=== PATIENT | male | born 1960 | race African-American/Black ===

== ENCOUNTER 2019-03-28 15:13 | Inpatient (IN) | payer MEDICAID ==
[~2019-03-28] VITALS: Ht 185.4 cm; Wt 188.2 kg
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
[2019-03-28 15:30] VITALS: BP 141/89
[2019-03-28] MEDS ORDERED: Aspirin Baby 81mg ORAL ONE (15:30)
--- NOTE | 2019-03-28 15:30 | NUR ---
ED Nurse Note: pt wheeled into ED accompanied by spouse c/o CP. pt reports onset was last PM 03/27 after he drank juice and a pepsi that pt took 1 325 mg tablet of ASA for without relief. pt states it felt like pressure that he rated an 8/10 that radiates to the back of his head. he felt his heart was beating fast and couldn't stand or walk. pt states that the px has not improved from last PM and he took another ASA tablet today without relief. He was unable to education instructor the shower without feeling dizzy and becoming diaphoretic. He reports feeling like his "equilibrium is off."
[2019-03-28] MEDS ORDERED: AFEDITAB CR30 MG ORAL (15:33)
[2019-03-28] MEDS ORDERED: ULORIC80 MG ORAL (15:33)
[2019-03-28] MEDS ORDERED: BENAZEPRIL HCL20 MG ORAL (15:33)
[2019-03-28] MEDS ORDERED: ATORVASTATIN CA40 MG ORAL (15:33)
[2019-03-28] MEDS ORDERED: JANUVIA25 MG ORAL (15:33)
[2019-03-28] MEDS ORDERED: METFORMIN HCL850 M1 ORAL (15:33)
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
[2019-03-28 16:14] LABS: BASOPHILS % (AUTO) 1.5 % (0.0-2.0); EOSINOPHILS % (AUTO) 0.9 % (0.0-3.0); HEMATOCRIT 45.8 % (42.0-52.0); HEMOGLOBIN 15.4 G/DL (14.2-18.0); LYMPHOCYTES % (AUTO) 35.4 % (20.0-45.0); MEAN CORPUSCULAR VOLUME 87 FL (80-99); MONOCYTES % (AUTO) 7.7 % (1.0-10.0); NEUTROPHILS % (AUTO) 54.4 % (45.0-75.0); PLATELET COUNT 468 K/UL (150-450); RED BLOOD COUNT 5.24 M/UL (4.70-6.10); RED CELL DISTRIBUTION WIDTH 12.6 % (11.6-14.8); WHITE BLOOD COUNT 15.3 K/UL (4.8-10.8)
--- NOTE | 2019-03-28 16:15 | NUR ---
ED Nurse Note: pt states his CP is at a 4 and he feels dizzy when he sits up. current BP is 134/66
[2019-03-28 16:48] LABS: ANION GAP 14 mmol/L (5-15); BLOOD UREA NITROGEN 12 mg/dL (7-18); CALCIUM 9.2 MG/DL (8.5-10.1); CARBON DIOXIDE 24 MMOL/L (21-32); CHLORIDE 107 MMOL/L (98-107); CREATININE 1.2 MG/DL (0.55-1.30); POTASSIUM 3.8 MMOL/L (3.5-5.1); SODIUM 144 MMOL/L (136-145)
[2019-03-28 17:20] VITALS: BP 140/49
--- NOTE | 2019-03-28 17:21 | NUR ---
ED Nurse Note: pt states that he felt dizzy when standing so I asked him to stay in bed in semi-carney position. BP is 140/49.
[2019-03-28 17:22] LABS: ALANINE AMINOTRANSFERASE 32 U/L (12-78); ALBUMIN 3.6 G/DL (3.4-5.0); ALBUMIN/GLOBULIN RATIO 0.8 (1.0-2.7); ALKALINE PHOSPHATASE 66 U/L (46-116); ASPARTATE AMINO TRANSFERASE 27 U/L (15-37); BILIRUBIN,TOTAL 0.5 MG/DL (0.2-1.0); CKMB 1.5 NG/ML (0.0-3.6); CREATINE KINASE 216 U/L (26-308)
--- NOTE | 2019-03-28 19:14 | NUR ---
HAND-OFF: Report given to Joanna LANE. pt remains in stable condition.
--- NOTE | 2019-03-28 19:15 | NUR ---
ED Nurse Note: received report and assumed care, pending admit, pt resting at this time, vss, sinus rhythm on monitor technician, safety precautions in place, pt advised to notify staff if needed assist.
[2019-03-28 19:50] VITALS: BP 141/53
--- NOTE | 2019-03-28 19:55 | NUR ---
ED Nurse Note: report given to DOMINGO Perkins.
--- NOTE | 2019-03-28 20:00 | NUR ---
ED Nurse Note: pt transferred to tele on desk monitor, sinus rhythm, belongings sent w/ pt w/ list, pt vss, resp even and unlabored on RA, medications sent home with girlfriend andreina. care endorsed to Rosita Perkins. iv intact and patent.
[2019-03-28 20:14] VITALS: BP 158/79
--- NOTE | 2019-03-28 20:25 | NUR ---
NURSE NOTES: Received pt from ED via gurney. Pt is awake, AOx4. In no acute distress. Breathing even and unlabored on room air. No c/o chest pain or dizziness at this time. Placed on youth nutritional monitor showing SR. VS stable. Oriented pt to room and unit. Bed in lowest position, call light within reach. Will call MD for admission orders.
[2019-03-28] MEDS ORDERED: Nitroglycerin Subl 0.4mg tab SL PRN (23:15)
[2019-03-28] MEDS ORDERED: Miralax 17gm pkt ORAL PRN (23:15)
[2019-03-28] MEDS ORDERED: dilTIAZem HCl 25mg/5ml Inj IV PRN (23:15)
[2019-03-28] MEDS ORDERED: Enalaprilat 2.5mg/2ml Inj IV PRN (23:15)
[2019-03-28] MEDS ORDERED: Morphine Sulfate 2mg/ml Inj(IV/IM USE ONLY) IVP PRN (23:15)
[2019-03-28] MEDS ORDERED: Albuterol/Ipratropium 3ml neb HHN PRN (23:15)
[2019-03-29] VITALS: BP 128/73
[2019-03-29 04:00] VITALS: BP 145/69
[2019-03-29 05:35] LABS: BASOPHILS % (AUTO) 1.2 % (0.0-2.0); EOSINOPHILS % (AUTO) 1.3 % (0.0-3.0); HEMATOCRIT 43.6 % (42.0-52.0); HEMOGLOBIN 14.3 G/DL (14.2-18.0); LYMPHOCYTES % (AUTO) 41.7 % (20.0-45.0); MEAN CORPUSCULAR VOLUME 88 FL (80-99); MONOCYTES % (AUTO) 8.6 % (1.0-10.0); NEUTROPHILS % (AUTO) 47.2 % (45.0-75.0); PLATELET COUNT 445 K/UL (150-450); RED BLOOD COUNT 4.93 M/UL (4.70-6.10); RED CELL DISTRIBUTION WIDTH 12.9 % (11.6-14.8); WHITE BLOOD COUNT 12.6 K/UL (4.8-10.8)
[2019-03-29 05:46] LABS: INR 1.1 (0.9-1.1)
[2019-03-29 06:05] LABS: CHOLESTEROL 153 MG/DL (< 200); HDL CHOLESTEROL 29 MG/DL (40-60); TRIGLYCERIDES 123 MG/DL (30-150)
[2019-03-29] MEDS: NovoLOG Insulin Flexpen SUBQ SCH ×4 (06:30→21:00)
[2019-03-29] MEDS: Heparin 5000 units/ml inj SUBQ SCH ×4 (06:36→21:57)
--- NOTE | 2019-03-29 07:27 | NUR ---
NURSE NOTES: received patient report from ruddy guardado. patient is stable. not in acute distress. eating breakfast comfortably. no arrythmias reported during the night. will follow plan of care.
--- NOTE | 2019-03-29 07:28 | NUR ---
HAND-OFF: Report given to DOMINGO Escalante.
[2019-03-29 08:00] VITALS: BP 145/73
[2019-03-29] MEDS: Aspirin Baby 81mg ORAL SCH (08:45)
--- NOTE | 2019-03-29 10:25 | Consultation ---
History of Present Illness General Date patient seen: Apr 05, 2019 Time patient seen: 15:23 Chief Complaint: Chest Pain Present Illness HPI This is a 58-year-old male, who lives at home, presented with substernal chest pain with shortness of breath EKG negative, troponin normal. CP got better with nitro EKG normal sinus inferior infarct Allergies: Coded Allergies: No Known Allergies (Unverified , 03/28/19) Medication History Scheduled Atorvastatin Calcium* (Atorvastatin Calcium*), 40 MG ORAL BEDTIME, (Reported) Benazepril Hcl* (Benazepril Hcl*), 20 MG ORAL EVERY 12 HOURS, (Reported) Febuxostat (Uloric), 80 MG ORAL DAILY, (Reported) Metformin Hcl* (Metformin Hcl*), 850 MG ORAL THREE TIMES A DAY, (Reported) Nifedipine* (Afeditab Cr*), 30 MG ORAL DAILY, (Reported) Sitagliptin* (Januvia*), 25 MG ORAL DAILY, (Reported) Patient History Healthcare decision maker Resuscitation status Full Code Advanced Directive on File Review of Systems Constitutional: Reports: no symptoms Eye: Reports: no symptoms ENT: Reports: no symptoms Respiratory: Reports: shortness of breath Cardiovascular: Reports: chest pain Gastrointestinal: Reports: no symptoms Genitourinary: Reports: no symptoms Musculoskeletal: Reports: no symptoms Skin: Reports: no symptoms Psychiatric: Reports: no symptoms Neurological: Reports: no symptoms Endocrine: Reports: no symptoms Hematologic/Lymphatic: Reports: no symptoms Physical Exam General Appearance: no apparent distress, alert Lines, tubes and drains: peripheral HEENT: normocephalic, atraumatic, anicteric Neck: non-tender, normal alignment, supple Respiratory/Chest: chest wall non-tender, lungs clear, normal breath sounds Cardiovascular/Chest: normal peripheral pulses, normal rate, regular rhythm Abdomen: normal bowel sounds, non tender, soft Extremities: normal range of motion, non-tender, normal inspection, no calf tenderness Skin Exam: normal pigmentation, warm/dry Neurologic: manager rehab II-XII grossly normal, no motor/sensory deficits Last 24 Hour Vital Signs Date Time Temp Pulse Resp B/P (MAP) Pulse Ox O2 Delivery O2 Flow Rate FiO2 03/29/19 09:00 Room Air 03/29/19 08:00 70 03/29/19 08:00 97.9 74 23 145/73 (97) 96 03/29/19 04:00 70 03/29/19 04:00 98.4 70 18 145/69 (94) 98 03/29/19 00:00 59 03/29/19 00:00 98.0 59 20 128/73 (91) 96 03/28/19 21:00 Room Air 03/28/19 20:14 97.9 77 20 158/79 (105) 98 03/28/19 20:00 98.2 82 24 141/53 98 Room Air 03/28/19 19:50 98.2 73 22 141/53 97 Room Air 03/28/19 19:30 83 24 Room Air 03/28/19 17:20 72 22 140/49 95 Room Air 03/28/19 15:30 98.2 83 18 141/89 100 Room Air 03/28/19 15:30 71 18 Room Air 03/28/19 15:24 98.2 71 18 141/89 (106) 100 Room Air Intake and Output 03/28/19 03/29/19 18:59 06:59 Intake Total 300 ml 500 ml Balance 300 ml 500 ml Intake Oral 300 ml 500 ml # Voids 3 Laboratory Tests Test 03/28/19 15:40 03/29/19 00:10 03/29/19 04:30 White Blood Count 15.3 K/UL (4.8-10.8) H 12.6 K/UL (4.8-10.8) H Red Blood Count 5.24 M/UL (4.70-6.10) 4.93 M/UL (4.70-6.10) Hemoglobin 15.4 G/DL (14.2-18.0) 14.3 G/DL (14.2-18.0) Hematocrit 45.8 % (42.0-52.0) 43.6 % (42.0-52.0) Mean Corpuscular Volume 87 FL (80-99) 88 FL (80-99) Mean Corpuscular Hemoglobin 29.4 PG (27.0-31.0) 29.0 PG (27.0-31.0) Mean Corpuscular Hemoglobin Concent 33.6 G/DL (32.0-36.0) 32.7 G/DL (32.0-36.0) Red Cell Distribution Width 12.6 % (11.6-14.8) 12.9 % (11.6-14.8) Platelet Count 468 K/UL (150-450) H 445 K/UL (150-450) Mean Platelet Volume 6.5 FL (6.5-10.1) 5.7 FL (6.5-10.1) L Neutrophils (%) (Auto) 54.4 % (45.0-75.0) 47.2 % (45.0-75.0) Lymphocytes (%) (Auto) 35.4 % (20.0-45.0) 41.7 % (20.0-45.0) Monocytes (%) (Auto) 7.7 % (1.0-10.0) 8.6 % (1.0-10.0) Eosinophils (%) (Auto) 0.9 % (0.0-3.0) 1.3 % (0.0-3.0) Basophils (%) (Auto) 1.5 % (0.0-2.0) 1.2 % (0.0-2.0) Sodium Level 144 MMOL/L (136-145) Potassium Level 3.8 MMOL/L (3.5-5.1) Chloride Level 107 MMOL/L (98-107) Carbon Dioxide Level 24 MMOL/L (21-32) Anion Gap 14 mmol/L (5-15) Blood Urea Nitrogen 12 mg/dL (7-18) Creatinine 1.2 MG/DL (0.55-1.30) Estimat Glomerular Filtration Rate > 60 mL/min (>60) Glucose Level 128 MG/DL (74-106) H Calcium Level 9.2 MG/DL (8.5-10.1) Total Bilirubin 0.5 MG/DL (0.2-1.0) Aspartate Amino Transf (AST/SGOT) 27 U/L (15-37) Alanine Aminotransferase (ALT/SGPT) 32 U/L (12-78) Alkaline Phosphatase 66 U/L (46-116) Total Creatine Kinase 216 U/L (26-308) Creatine Kinase MB 1.5 NG/ML (0.0-3.6) Creatine Kinase MB Relative Index 0.6 Troponin I 0.000 ng/mL (0.000-0.056) 0.005 ng/mL (0.000-0.056) Pro-B-Type Natriuretic Peptide 176 pg/mL (0-125) H Total Protein 7.9 G/DL (6.4-8.2) Albumin 3.6 G/DL (3.4-5.0) Globulin 4.3 g/dL Albumin/Globulin Ratio 0.8 (1.0-2.7) L Prothrombin Time 11.2 SEC (9.30-11.50) Prothromb Time International Ratio 1.1 (0.9-1.1) Activated Partial Thromboplast Time 30 SEC (23-33) C-Reactive Protein, Quantitative < 0.4 mg/dL (0.00-0.90) Triglycerides Level 123 MG/DL (30-150) Cholesterol Level 153 MG/DL (< 200) LDL Cholesterol 102 mg/dL (<100) H HDL Cholesterol 29 MG/DL (40-60) L Cholesterol/HDL Ratio 5.3 (3.3-4.4) H Thyroid Stimulating Hormone (TSH) 1.795 uiU/mL (0.358-3.740) Height (Feet): 6 Height (Inches): 1.00 Weight (Pounds): 415 Medications Current Medications Medications (Trade) Dose Ordered Sig/Johnny Route PRN Reason Start Time Stop Time Status Last Admin Dose Admin Acetaminophen (Tylenol) 650 mg Q4H PRN ORAL FEVER 03/28/19 23:15 04/27/19 23:14 Albuterol/ Ipratropium (Albuterol/ Ipratropium) 3 ml Q4H PRN HHN Shortness of Breath 03/28/19 23:15 04/02/19 23:14 Aspirin (ASA) 162 mg DAILY ORAL 03/29/19 09:00 04/28/19 08:59 03/29/19 08:45 Dextrose (Dextrose 50%) 25 ml Q30M PRN IV Hypoglycemia 03/28/19 23:15 04/27/19 23:14 Dextrose (Dextrose 50%) 50 ml Q30M PRN IV Hypoglycemia 03/28/19 23:15 04/27/19 23:14 Diltiazem HCl (Cardizem) 10 mg Q1H PRN IV heart rate more than 120, 03/28/19 23:15 04/27/19 23:14 Enalaprilat (Vasotec) 2.5 mg Q6H PRN IV sbp more than 160 03/28/19 23:15 04/27/19 23:14 Heparin Sodium (Porcine) (Heparin 5000 units/ml) 5,000 units EVERY 8 HOURS SUBQ 03/29/19 06:00 04/28/19 05:59 03/29/19 06:36 Insulin Aspart (NovoLOG) BEFORE MEALS AND HS SUBQ 03/29/19 06:30 04/28/19 06:29 Morphine Sulfate (Morphine Sulfate) 2 mg Q4H PRN IVP severe Pain (Pain Scale 7-10) 03/28/19 23:15 04/04/19 23:14 Nitroglycerin (Ntg) 0.4 mg Q5M PRN SL Prn Chest Pain 03/28/19 23:15 04/27/19 23:14 Ondansetron HCl (Zofran) 4 mg Q6H PRN IVP Nausea & Vomiting 03/28/19 23:15 04/27/19 23:14 Pantoprazole (Protonix) 40 mg DAILY ORAL 03/29/19 09:00 04/28/19 08:59 03/29/19 08:45 Polyethylene Glycol (Miralax) 17 gm DAILYPRN PRN ORAL Constipation 03/28/19 23:15 04/27/19 23:14 Temazepam (Restoril) 15 mg HSPRN PRN ORAL Insomnia 03/28/19 23:15 04/04/19 23:14 Assessment/Plan Status: stable Assessment/Plan: Assessment: Chest pain, shortness of breath, hypertension, diabetes, and obesity. Plan Serial EKG/Troponin Nitro prn check lipid panel Aspirin Patient too large for nuclear camera and echo with suboptimal images Recommend outpatient follow up to arrange cardaic cath to evaluate coronary anatomy vs CTA coronary Neo Gomez MD Mar 29, 2019 10:25
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
[2019-03-29 12:00] VITALS: BP 147/74
--- NOTE | 2019-03-29 13:18 | Cardiology Report ---
APPROVED REPORT EKG Measurement Heart [id number] Normal sinus rhythm with sinus arrhythmia Septal infarct, age undetermined Possible Lateral infarct, age undetermined Abnormal ECG
--- NOTE | 2019-03-29 13:22 | Cardiology Report ---
APPROVED REPORT EKG Measurement Heart [id number] [id number] Normal sinus rhythm Inferior infarct, age undetermined Abnormal ECG
[2019-03-29 16:00] VITALS: BP 140/80
[2019-03-29] MEDS: Benazepril 10mg tab ORAL SCH (17:30)
--- NOTE | 2019-03-29 19:24 | NUR ---
HAND-OFF: Report given to ruddy guardado.
--- NOTE | 2019-03-29 19:25 | NUR ---
NURSE NOTES: Received report from DOMINGO Escalante. Pt is awake and resting in bed. In no acute distress. IV line intact and patent. Bed in lowest position, call light within reach. Will continue plan of care.
--- NOTE | 2019-03-29 19:45 | Diagnostic Imaging Report ---
EXAM: US Duplex Bilateral Lower Extremities Veins CLINICAL HISTORY: DVT TECHNIQUE: Real-time duplex ultrasound scan of the bilateral lower extremity veins integrating B-mode two-dimensional vascular structure, Doppler spectral analysis, color flow Doppler imaging and compression. COMPARISON: No relevant prior studies available. FINDINGS: SEE Impression. IMPRESSION: 1. Positive for DVT involving 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 2. No other venous thrombosis. 3. No mass or adenopathy. <MYCVCSECTION> [employer] Value [employer] 03 29 19 19:46 Verify Receipt with Nurse Verified receipt with DOMINGO GOMEZ on 03 29 19:45 (-07:00)
[2019-03-29 20:00] VITALS: BP 127/74
--- NOTE | 2019-03-29 21:00 | History and Physical Report ---
DATE OF ADMISSION: 03/28/2019 TIME: 3 p.m. CONSULTANTS: 1. Ashtyn Jung M.D. 2. Jose Rosado M.D. CHIEF COMPLAINT: Chest pain and short of breath. BRIEF HISTORY: This is a 58-year-old male, who lives at home, presented with substernal chest pain with shortness of breath. It was intermittent. He felt dizzy, but no loss of consciousness. No radiation. The patient came to [place], diagnosed the above, admitted to telemetry for further care. Currently, calm in bed, feeling a little bit better, no complaint. REVIEW OF SYSTEMS: Slight chest pain. Slight short of breath. No nausea, vomiting, or diarrhea. PAST MEDICAL HISTORY: Includes diabetes, hypertension, obesity, and . PAST SURGERY HISTORY: Abdominal surgery, partial spleen removal. MEDICATIONS: Include nifedipine, atorvastatin, benazepril, metformin, aspirin, pantoprazole, insulin, albuterol, nitroglycerin, Tylenol, morphine, Zofran, enalapril, temazepam, and diltiazem. ALLERGIES: Denies. SOCIAL HISTORY: No smoking. Positive alcohol. No intravenous drug abuse. FAMILY HISTORY: Noncontributory. PHYSICAL EXAMINATION: GENERAL: Calm in bed, oriented x3, no acute distress. VITAL SIGNS: Temperature is 98 degrees, pulse 72, respirations 20, and blood pressure 147/74. CARDIOVASCULAR: No murmur. LUNGS: Distant and clear. ABDOMEN: Positive bowel sounds. Soft, nontender, nondistended. EXTREMITIES: No cyanosis, clubbing, or edema. NEUROLOGIC:: The patient moves all extremities, slightly weak. LABORATORY AND DIAGNOSTIC DATA: White count 12.6, otherwise CBC is normal. BMP show glucose 128. Troponin 0.005. BNP is 176. INR is . PTT is 30. ASSESSMENT: Chest pain, shortness of breath, hypertension, diabetes, and obesity. PLAN: 1. O2 and pulmonary treatment as needed. 2. Blood pressure and blood sugar control. 3. Pain control. 4. Dietary followup. 5. Cardiology followup. Dennis Tejada D.O. DR: NANCY JOB#: [id number] CC:
[2019-03-29] MEDS: Atorvastatin 20mg tab ORAL SCH (21:56)
[2019-03-30] VITALS: BP 105/53
[2019-03-30 04:00] VITALS: BP 126/75
[2019-03-30 05:08] LABS: EOSINOPHILS % (AUTO) 1.2 % (0.0-3.0); HEMATOCRIT 45.2 % (42.0-52.0); HEMOGLOBIN 14.2 G/DL (14.2-18.0); LYMPHOCYTES % (AUTO) 51.8 % (20.0-45.0); MEAN CORPUSCULAR VOLUME 92 FL (80-99); MONOCYTES % (AUTO) 8.1 % (1.0-10.0); NEUTROPHILS % (AUTO) 35.9 % (45.0-75.0); PLATELET COUNT 451 K/UL (150-450); RED CELL DISTRIBUTION WIDTH 13.6 % (11.6-14.8); WHITE BLOOD COUNT 11.7 K/UL (4.8-10.8)
[2019-03-30 05:49] LABS: ANION GAP 19 mmol/L (5-15); BLOOD UREA NITROGEN 13 mg/dL (7-18); CALCIUM 9.2 MG/DL (8.5-10.1); CARBON DIOXIDE 18 MMOL/L (21-32); CHLORIDE 107 MMOL/L (98-107); CREATININE 1.1 MG/DL (0.55-1.30); POTASSIUM 3.8 MMOL/L (3.5-5.1); SODIUM 144 MMOL/L (136-145)
[2019-03-30] MEDS: NovoLOG Insulin Flexpen SUBQ SCH ×4 (06:30→21:00)
[2019-03-30] MEDS: Heparin 5000 units/ml inj SUBQ SCH ×3 (06:45→21:31)
[2019-03-30] MEDS: sitaGLIPtin 25mg tab ORAL SCH (06:45)
--- NOTE | 2019-03-30 07:15 | NUR ---
NURSE NOTES: Received report from DOMINGO Perkins. Pt is asleep and awaken to name. patient is AAO x 2. In no acute distress. Patient is on cooking teacher. Patient is breathing and unlabored on room air. IV line intact and patent. Bed in lowest position, call light within reach. Will continue plan of care. Addendum: 03/30/19 at 0749 by Luciano Gao RN Patient is AAO x 4. Patient ate 100% of food. will follow up with possible plan for stress test on Sunday.
--- NOTE | 2019-03-30 07:30 | NUR ---
HAND-OFF: Report given to DOMINGO Wolf.
[2019-03-30 08:00] VITALS: BP 155/85
[2019-03-30] MEDS: NIFEdipine 10mg cap ORAL SCH (08:34)
[2019-03-30] MEDS: Aspirin Baby 81mg ORAL SCH (08:35)
[2019-03-30] MEDS: Benazepril 10mg tab ORAL SCH ×2 (08:35→17:12)
--- NOTE | 2019-03-30 09:49 | General Progress Note ---
Assessment/Plan Problem List: (1) SOB (shortness of breath) ICD Codes: R06.02 - Shortness of breath SNOMED: 311790357 (2) Weak ICD Codes: R53.1 - Weakness SNOMED: 42695622 (3) Obese ICD Codes: E66.9 - Obesity, unspecified SNOMED: 736487937, 436163743 (4) HTN (hypertension) ICD Codes: I10 - Essential (primary) hypertension SNOMED: 97708068 (5) Diabetes ICD Codes: E11.9 - Type 2 diabetes mellitus without complications SNOMED: 57434544 (6) Chest pain ICD Codes: R07.9 - Chest pain, unspecified SNOMED: 94623001 Status: stable, progressing Assessment/Plan: pt diet cardio eval cbc bmp am aru eval Subjective Constitutional: Reports: weakness Allergies: Coded Allergies: No Known Allergies (Unverified , 03/28/19) All Systems: reviewed and negative except above Subjective calm in bed Objective Last 24 Hour Vital Signs Date Time Temp Pulse Resp B/P (MAP) Pulse Ox O2 Delivery O2 Flow Rate FiO2 03/30/19 09:00 Room Air 03/30/19 08:35 155/85 03/30/19 08:34 80 155/85 03/30/19 08:28 69 03/30/19 08:00 97.3 80 23 155/85 (108) 99 03/30/19 07:10 66 18 97 Room Air 21 03/30/19 04:00 97.7 69 20 126/75 (92) 98 03/30/19 04:00 69 03/30/19 00:00 64 03/30/19 00:00 97.8 64 20 105/53 (70) 96 03/29/19 21:00 Room Air 03/29/19 20:06 67 18 96 Room Air 21 03/29/19 20:00 77 03/29/19 20:00 97.9 77 20 127/74 (91) 98 03/29/19 17:30 140/80 03/29/19 16:00 98.0 68 23 140/80 (100) 96 03/29/19 15:44 70 03/29/19 12:00 98.0 72 22 147/74 (98) 96 03/29/19 11:49 72 Intake and Output 03/29/19 03/30/19 19:00 07:00 Intake Total 1250 ml 100 ml Balance 1250 ml 100 ml Intake Oral 1250 ml Other 100 ml # Voids 4 4 # Bowel Movements 1 Laboratory Tests 03/30/19 00:15: Troponin I 0.000 03/30/19 04:00: Sodium Level 144, Potassium Level 3.8, Chloride Level 107, Carbon Dioxide Level 18L, Anion Gap 19H, Blood Urea Nitrogen 13, Creatinine 1.1, Estimat Glomerular Filtration Rate > 60, Glucose Level 114H, Calcium Level 9.2 03/30/19 04:30: White Blood Count 11.7H, Red Blood Count 4.90, Hemoglobin 14.2, Hematocrit 45.2 , Mean Corpuscular Volume 92, Mean Corpuscular Hemoglobin 29.0, Mean Corpuscular Hemoglobin Concent 31.4L, Red Cell Distribution Width 13.6, Platelet Count 451H, Mean Platelet Volume 5.3L, Neutrophils (%) (Auto) 35.9L, Lymphocytes (%) (Auto) 51.8H, Monocytes (%) (Auto) 8.1, Eosinophils (%) (Auto) 1.2, Basophils (%) (Auto) 3.0H Height (Feet): 6 Height (Inches): 1.00 Weight (Pounds): 415 General Appearance: lethargic EENT: normal ENT inspection Neck: normal alignment Cardiovascular: normal peripheral pulses, normal rate, regular rhythm Respiratory/Chest: chest wall non-tender, lungs clear, normal breath sounds Abdomen: normal bowel sounds, non tender, soft Extremities: normal inspection Edema: no edema noted Arm (L), no edema noted Arm (R), no edema noted Leg (L), no edema noted Leg (R), no edema noted Pedal (L), no edema noted Pedal (R), no edema noted Generalized Neurologic: responsive, motor weakness Skin: normal pigmentation, warm/dry Dennis Tejada DO Mar 30, 2019 09:49
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
--- NOTE | 2019-03-30 11:00 | NUR ---
NURSE NOTES: Spoke with computer engineering technologist. States patient is not a canidate for nuclear stress test since patient is above 350lb. I will let Dr. Gomez be aware.
--- NOTE | 2019-03-30 11:45 | NUR ---
NURSE NOTES: Spoke to Dr. Gomez about general service technician message. Dr. Gomez state, "cancelled stress test and patient can see his access clinician as outpatient." Will paged Dr. Tejada about update.
[2019-03-30 12:00] VITALS: BP 129/73
--- NOTE | 2019-03-30 12:05 | Cardiology Progress Note ---
Assessment/Plan Status: stable Assessment/Plan Assessment Chest pain Shortness of breath Obesity Plan Troponin negative x3 Ok to d/c with outpatient follow up Nitro prn Subjective Cardiovascular: Reports: no symptoms Respiratory: Reports: no symptoms Gastrointestinal/Abdominal: Reports: no symptoms Genitourinary: Reports: no symptoms Subjective No acute events, no further CP, EKG inferior infarct no ischemia, troponin negative Objective Last 24 Hour Vital Signs Date Time Temp Pulse Resp B/P (MAP) Pulse Ox O2 Delivery O2 Flow Rate FiO2 03/30/19 09:35 97.3 03/30/19 09:00 Room Air 03/30/19 08:35 155/85 03/30/19 08:34 80 155/85 03/30/19 08:28 69 03/30/19 08:00 97.3 80 23 155/85 (108) 99 03/30/19 07:10 66 18 97 Room Air 21 03/30/19 04:00 97.7 69 20 126/75 (92) 98 03/30/19 04:00 69 03/30/19 00:00 64 03/30/19 00:00 97.8 64 20 105/53 (70) 96 03/29/19 21:00 Room Air 03/29/19 20:06 67 18 96 Room Air 21 03/29/19 20:00 77 03/29/19 20:00 97.9 77 20 127/74 (91) 98 03/29/19 17:30 140/80 03/29/19 16:00 98.0 68 23 140/80 (100) 96 03/29/19 15:44 70 General Appearance: no apparent distress, alert EENT: PERRL/EOMI, normal ENT inspection, TMs normal, pharynx normal Neck: non-tender, normal alignment, supple, normal inspection, no JVD Rhythm: NSR Cardiovascular: normal peripheral pulses, normal rate, regular rhythm Respiratory/Chest: chest wall non-tender, lungs clear, normal breath sounds Abdomen: normal bowel sounds, non tender, soft, no organomegaly, no mass Extremities: normal range of motion, non-tender, no calf tenderness, no swelling Neurologic: clinical trial manager II-XII grossly normal, no motor/sensory deficits Intake and Output 03/29/19 03/30/19 19:00 07:00 Intake Total 1250 ml 100 ml Balance 1250 ml 100 ml Intake Oral 1250 ml Other 100 ml # Voids 4 4 # Bowel Movements 1 Laboratory Tests Test 03/30/19 00:15 03/30/19 04:00 03/30/19 04:30 Troponin I 0.000 ng/mL (0.000-0.056) Sodium Level 144 MMOL/L (136-145) Potassium Level 3.8 MMOL/L (3.5-5.1) Chloride Level 107 MMOL/L (98-107) Carbon Dioxide Level 18 MMOL/L (21-32) L Anion Gap 19 mmol/L (5-15) H Blood Urea Nitrogen 13 mg/dL (7-18) Creatinine 1.1 MG/DL (0.55-1.30) Estimat Glomerular Filtration Rate > 60 mL/min (>60) Glucose Level 114 MG/DL (74-106) H Calcium Level 9.2 MG/DL (8.5-10.1) White Blood Count 11.7 K/UL (4.8-10.8) H Red Blood Count 4.90 M/UL (4.70-6.10) Hemoglobin 14.2 G/DL (14.2-18.0) Hematocrit 45.2 % (42.0-52.0) Mean Corpuscular Volume 92 FL (80-99) Mean Corpuscular Hemoglobin 29.0 PG (27.0-31.0) Mean Corpuscular Hemoglobin Concent 31.4 G/DL (32.0-36.0) L Red Cell Distribution Width 13.6 % (11.6-14.8) Platelet Count 451 K/UL (150-450) H Mean Platelet Volume 5.3 FL (6.5-10.1) L Neutrophils (%) (Auto) 35.9 % (45.0-75.0) L Lymphocytes (%) (Auto) 51.8 % (20.0-45.0) H Monocytes (%) (Auto) 8.1 % (1.0-10.0) Eosinophils (%) (Auto) 1.2 % (0.0-3.0) Basophils (%) (Auto) 3.0 % (0.0-2.0) H Neo Gomez MD Mar 30, 2019 12:05
--- NOTE | 2019-03-30 12:45 | NUR ---
NURSE NOTES: Paged Dr. Tejada about Dr. Gomez note.
--- NOTE | 2019-03-30 15:24 | NUR ---
PT Note PT eval completed. Patient is independent in mobility and gait without any AD. No f/u PT treatments needed recommended. Addendum: 03/30/19 at 1524 by AUDIE VERNON PT Amended: Links added.
[2019-03-30 16:00] VITALS: BP 149/88
--- NOTE | 2019-03-30 18:21 | NUR ---
NURSE NOTES: 18:18 - Spoke to Dr. Gomez. Cleared by coffee farmer for discharge. 18:20 - Paged Dr. Tejada about coffee farmer's clearance. Awaiting call back.
--- NOTE | 2019-03-30 19:29 | NUR ---
HAND-OFF: Report given to DOMINGO Perkins. Endorsed about tax revenue officer order.
--- NOTE | 2019-03-30 19:30 | NUR ---
NURSE NOTES: Report received from DOMINGO Wolf. Patient awake, alert and in no apparent distress. will continue plan of care.
[2019-03-30 20:00] VITALS: BP 126/75
[2019-03-30] MEDS: Atorvastatin 20mg tab ORAL SCH (21:30)
[2019-03-31] VITALS: BP 125/66
[2019-03-31 04:00] VITALS: BP 105/59
[2019-03-31] MEDS: Heparin 5000 units/ml inj SUBQ SCH (06:25)
--- NOTE | 2019-03-31 06:25 | Hematology/Onc Progress Note ---
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 --> Given that it is chronic, would continue asa --> currently is on heparin sq for ppx --> ok to resume ambulation/pt as needed, undergone eval # Leukocytosis likely due to reactive process --> hx of former smoking, though in this case less likely contributor --> is off abx, trend 12.6-->11.7 # Thrombocytosis likely reactive process --> okay to continue asa likely 2ndary prevention --> trend as needed, 451k # HTN --> sbo goal <150 --> as per cards --> on nifedipine and dilt # Chest pain rule out acs --> stress test, eg, trop # Dvt ppx heparin sq The timing of this note does not necessarily reflect the time of the patient was seen. Greatly appreciate consultation. Subjective Constitutional: Denies: no symptoms, chills, fever, malaise, weakness, other HEENT: Denies: no symptoms, eye pain, blurred vision, tearing, double vision, ear pain, ear discharge, nose pain, nose congestion, throat pain, throat swelling, mouth pain, mouth swelling, other Cardiovascular: Denies: no symptoms, chest pain, edema, irregular heart rate, lightheadedness, palpitations, syncope, other Respiratory: Denies: no symptoms, cough, shortness of breath, SOB with excertion, SOB at rest, sputum, wheezing, other Gastrointestinal/Abdominal: Denies: no symptoms, abdomen distended, abdominal pain, black stools, tarry stools, blood in stool, constipated, diarrhea, difficulty swallowing, nausea, poor appetite, poor fluid intake, rectal bleeding , vomiting, other Genitourinary: Denies: no symptoms, burning, discharge, frequency, flank pain, hematuria, incontinence, pain, urgency, other Endocrine: Denies: no symptoms, excessive sweating, flushing, intolerance to cold, intolerance to heat, increased hunger, increased thirst, increased urine, unexplained weight gain, unexplained weight loss, other Allergies: Coded Allergies: No Known Allergies (Unverified , 03/28/19) Subjective 03/31: awake and alert, wants to be discharged, no f/c noted Objective Objective Current Medications Medications (Trade) Dose Ordered Sig/Johnny Route PRN Reason Start Time Stop Time Status Last Admin Dose Admin Acetaminophen (Tylenol) 650 mg Q4H PRN ORAL Mild Pain/Temp > 100.5 03/29/19 18:15 04/27/19 18:14 03/30/19 09:05 Albuterol/ Ipratropium (Albuterol/ Ipratropium) 3 ml Q4H PRN HHN Shortness of Breath 03/28/19 23:15 04/02/19 23:14 Aspirin (ASA) 162 mg DAILY ORAL 03/29/19 09:00 04/28/19 08:59 03/30/19 08:35 Atorvastatin Calcium (Lipitor) 40 mg BEDTIME ORAL 03/29/19 21:00 04/28/19 20:59 03/30/19 21:30 Benazepril HCl (Lotensin) 20 mg BID ORAL 03/29/19 18:00 04/28/19 17:59 03/30/19 17:12 Dextrose (Dextrose 50%) 25 ml Q30M PRN IV Hypoglycemia 03/28/19 23:15 04/27/19 23:14 Dextrose (Dextrose 50%) 50 ml Q30M PRN IV Hypoglycemia 03/28/19 23:15 04/27/19 23:14 Diltiazem HCl (Cardizem) 10 mg Q1H PRN IV heart rate more than 120, 03/28/19 23:15 04/27/19 23:14 Enalaprilat (Vasotec) 2.5 mg Q6H PRN IV sbp more than 160 03/28/19 23:15 04/27/19 23:14 Heparin Sodium (Porcine) (Heparin 5000 units/ml) 5,000 units EVERY 8 HOURS SUBQ 03/29/19 06:00 04/28/19 05:59 03/30/19 21:31 Insulin Aspart (NovoLOG) BEFORE MEALS AND HS SUBQ 03/29/19 06:30 04/28/19 06:29 Metformin HCl (Glucophage) 850 mg TIAC ORAL 03/29/19 11:30 04/28/19 11:29 03/30/19 16:51 Morphine Sulfate (Morphine Sulfate) 2 mg Q4H PRN IVP severe Pain (Pain Scale 7-10) 03/28/19 23:15 04/04/19 23:14 Nifedipine (Adalat) 30 mg DAILY ORAL 03/30/19 09:00 04/29/19 08:59 03/30/19 08:34 Nitroglycerin (Ntg) 0.4 mg Q5M PRN SL Prn Chest Pain 03/28/19 23:15 04/27/19 23:14 Ondansetron HCl (Zofran) 4 mg Q6H PRN IVP Nausea & Vomiting 03/28/19 23:15 04/27/19 23:14 Pantoprazole (Protonix) 40 mg DAILY ORAL 03/29/19 09:00 04/28/19 08:59 03/30/19 08:35 Polyethylene Glycol (Miralax) 17 gm DAILYPRN PRN ORAL Constipation 03/28/19 23:15 04/27/19 23:14 Sitagliptin Phosphate (Januvia) 25 mg ACBREAKFAST ORAL 03/30/19 06:30 04/29/19 06:29 03/30/19 06:45 Temazepam (Restoril) 15 mg HSPRN PRN ORAL Insomnia 03/28/19 23:15 04/04/19 23:14 Last 24 Hour Vital Signs Date Time Temp Pulse Resp B/P (MAP) Pulse Ox O2 Delivery O2 Flow Rate FiO2 03/31/19 04:00 97.8 67 20 105/59 (74) 96 03/31/19 04:00 67 03/31/19 00:00 74 03/31/19 00:00 97.6 74 20 125/66 (85) 98 03/30/19 21:00 Room Air 03/30/19 20:26 67 18 97 Room Air 21 03/30/19 20:00 97.9 76 20 126/75 (92) 98 03/30/19 20:00 76 03/30/19 17:12 149/88 03/30/19 16:46 83 03/30/19 16:00 98.0 84 22 149/88 (108) 96 03/30/19 12:00 97.0 83 21 129/73 (91) 95 03/30/19 11:50 80 03/30/19 09:35 97.3 03/30/19 09:00 Room Air 03/30/19 08:35 155/85 03/30/19 08:34 80 155/85 03/30/19 08:28 69 03/30/19 08:00 97.3 80 23 155/85 (108) 99 03/30/19 07:10 66 18 97 Room Air 21 03/30/19 04:00 97.7 69 20 126/75 (92) 98 03/30/19 04:00 69 03/30/19 00:00 64 03/30/19 00:00 97.8 64 20 105/53 (70) 96 03/29/19 21:00 Room Air 03/29/19 20:06 67 18 96 Room Air 21 03/29/19 20:00 77 03/29/19 20:00 97.9 77 20 127/74 (91) 98 03/29/19 17:30 140/80 03/29/19 16:00 98.0 68 23 140/80 (100) 96 03/29/19 15:44 70 03/29/19 12:00 98.0 72 22 147/74 (98) 96 03/29/19 11:49 72 03/29/19 09:00 Room Air 03/29/19 08:00 70 03/29/19 08:00 97.9 74 23 145/73 (97) 96 Intake and Output 03/30/19 03/31/19 19:00 07:00 # Voids 4 2 # Bowel Movements 1 1 Labs Test 03/28/19 15:40 03/29/19 00:10 03/29/19 04:30 03/30/19 00:15 White Blood Count 15.3 K/UL (4.8-10.8) 12.6 K/UL (4.8-10.8) Red Blood Count 5.24 M/UL (4.70-6.10) 4.93 M/UL (4.70-6.10) Hemoglobin 15.4 G/DL (14.2-18.0) 14.3 G/DL (14.2-18.0) Hematocrit 45.8 % (42.0-52.0) 43.6 % (42.0-52.0) Mean Corpuscular Volume 87 FL (80-99) 88 FL (80-99) Mean Corpuscular Hemoglobin 29.4 PG (27.0-31.0) 29.0 PG (27.0-31.0) Mean Corpuscular Hemoglobin Concent 33.6 G/DL (32.0-36.0) 32.7 G/DL (32.0-36.0) Red Cell Distribution Width 12.6 % (11.6-14.8) 12.9 % (11.6-14.8) Platelet Count 468 K/UL (150-450) 445 K/UL (150-450) Mean Platelet Volume 6.5 FL (6.5-10.1) 5.7 FL (6.5-10.1) Neutrophils (%) (Auto) 54.4 % (45.0-75.0) 47.2 % (45.0-75.0) Lymphocytes (%) (Auto) 35.4 % (20.0-45.0) 41.7 % (20.0-45.0) Monocytes (%) (Auto) 7.7 % (1.0-10.0) 8.6 % (1.0-10.0) Eosinophils (%) (Auto) 0.9 % (0.0-3.0) 1.3 % (0.0-3.0) Basophils (%) (Auto) 1.5 % (0.0-2.0) 1.2 % (0.0-2.0) Sodium Level 144 MMOL/L (136-145) Potassium Level 3.8 MMOL/L (3.5-5.1) Chloride Level 107 MMOL/L (98-107) Carbon Dioxide Level 24 MMOL/L (21-32) Anion Gap 14 mmol/L (5-15) Blood Urea Nitrogen 12 mg/dL (7-18) Creatinine 1.2 MG/DL (0.55-1.30) Estimat Glomerular Filtration Rate > 60 mL/min (>60) Glucose Level 128 MG/DL (74-106) Calcium Level 9.2 MG/DL (8.5-10.1) Total Bilirubin 0.5 MG/DL (0.2-1.0) Aspartate Amino Transf (AST/SGOT) 27 U/L (15-37) Alanine Aminotransferase (ALT/SGPT) 32 U/L (12-78) Alkaline Phosphatase 66 U/L (46-116) Total Creatine Kinase 216 U/L (26-308) Creatine Kinase MB 1.5 NG/ML (0.0-3.6) Creatine Kinase MB Relative Index 0.6 Troponin I 0.000 ng/mL (0.000-0.056) 0.005 ng/mL (0.000-0.056) 0.000 ng/mL (0.000-0.056) Pro-B-Type Natriuretic Peptide 176 pg/mL (0-125) Total Protein 7.9 G/DL (6.4-8.2) Albumin 3.6 G/DL (3.4-5.0) Globulin 4.3 g/dL Albumin/Globulin Ratio 0.8 (1.0-2.7) Prothrombin Time 11.2 SEC (9.30-11.50) Prothromb Time International Ratio 1.1 (0.9-1.1) Activated Partial Thromboplast Time 30 SEC (23-33) C-Reactive Protein, Quantitative < 0.4 mg/dL (0.00-0.90) Triglycerides Level 123 MG/DL (30-150) Cholesterol Level 153 MG/DL (< 200) LDL Cholesterol 102 mg/dL (<100) HDL Cholesterol 29 MG/DL (40-60) Cholesterol/HDL Ratio 5.3 (3.3-4.4) Thyroid Stimulating Hormone (TSH) 1.795 uiU/mL (0.358-3.740) Test 03/30/19 04:00 03/30/19 04:30 03/30/19 23:12 Sodium Level 144 MMOL/L (136-145) Potassium Level 3.8 MMOL/L (3.5-5.1) Chloride Level 107 MMOL/L (98-107) Carbon Dioxide Level 18 MMOL/L (21-32) Anion Gap 19 mmol/L (5-15) Blood Urea Nitrogen 13 mg/dL (7-18) Creatinine 1.1 MG/DL (0.55-1.30) Estimat Glomerular Filtration Rate > 60 mL/min (>60) Glucose Level 114 MG/DL (74-106) Calcium Level 9.2 MG/DL (8.5-10.1) White Blood Count 11.7 K/UL (4.8-10.8) Red Blood Count 4.90 M/UL (4.70-6.10) Hemoglobin 14.2 G/DL (14.2-18.0) Hematocrit 45.2 % (42.0-52.0) Mean Corpuscular Volume 92 FL (80-99) Mean Corpuscular Hemoglobin 29.0 PG (27.0-31.0) Mean Corpuscular Hemoglobin Concent 31.4 G/DL (32.0-36.0) Red Cell Distribution Width 13.6 % (11.6-14.8) Platelet Count 451 K/UL (150-450) Mean Platelet Volume 5.3 FL (6.5-10.1) Neutrophils (%) (Auto) 35.9 % (45.0-75.0) Lymphocytes (%) (Auto) 51.8 % (20.0-45.0) Monocytes (%) (Auto) 8.1 % (1.0-10.0) Eosinophils (%) (Auto) 1.2 % (0.0-3.0) Basophils (%) (Auto) 3.0 % (0.0-2.0) Troponin I 0.000 ng/mL (0.000-0.056) Height (Feet): 6 Height (Inches): 1.00 Weight (Pounds): 415 Objective Physical Exam: Vitals: reviewed General Appearance: NAD HEENT: normocephalic, atraumatic Neck: non-tender, normal alignment Respiratory/Chest: normal breath sounds bilaterally Cardiovascular/Chest: normal peripheral pulses, normal rate Abdomen: normal bowel sounds, soft, nontender Extremities: normal range of motion Chris Simpson MD Mar 31, 2019 06:25
[2019-03-31] MEDS: NovoLOG Insulin Flexpen SUBQ SCH (06:26)
[2019-03-31] MEDS: sitaGLIPtin 25mg tab ORAL SCH (06:26)
--- NOTE | 2019-03-31 07:09 | NUR ---
HAND-OFF: Report given to DOMINGO Hernandez.
--- NOTE | 2019-03-31 07:10 | NUR ---
NURSE NOTES: Received bedside report from Gregorio LANE. Pt. awake, a/o x 4. No sign of distress. Denies pain at present. IV site left FA #[id number]. in placed SL. Bed in low position, locked. Call light within reach. Will cont. to monitor.
[2019-03-31 07:36] LABS: BASOPHILS % (AUTO) 1.7 % (0.0-2.0); EOSINOPHILS % (AUTO) 2.2 % (0.0-3.0); HEMATOCRIT 44.9 % (42.0-52.0); HEMOGLOBIN 14.7 G/DL (14.2-18.0); LYMPHOCYTES % (AUTO) 40.6 % (20.0-45.0); MEAN CORPUSCULAR VOLUME 89 FL (80-99); MONOCYTES % (AUTO) 7.9 % (1.0-10.0); NEUTROPHILS % (AUTO) 47.5 % (45.0-75.0); PLATELET COUNT 457 K/UL (150-450); RED BLOOD COUNT 5.05 M/UL (4.70-6.10); RED CELL DISTRIBUTION WIDTH 12.8 % (11.6-14.8); WHITE BLOOD COUNT 12.6 K/UL (4.8-10.8)
[2019-03-31 08:00] VITALS: BP 146/79
[2019-03-31] MEDS: Aspirin Baby 81mg ORAL SCH (08:40)
[2019-03-31] MEDS: NIFEdipine 10mg cap ORAL SCH (08:41)
[2019-03-31 08:42] VITALS: BP 146/79
[2019-03-31] MEDS: Benazepril 10mg tab ORAL SCH (08:42)
--- NOTE | 2019-03-31 08:46 | Cardiology Report ---
APPROVED REPORT EXAM: Two-dimensional and M-mode echocardiogram with Doppler and color Doppler. INDICATION Left ventricular function M-Mode DIMENSIONS IVSd1.2 (0.7-1.1cm)Left Atrium (MM)5.4 (1.6-4.0cm) LVDd5.5 (3.5-5.6cm)Aortic Root3.3 (2.0-3.7cm) PWd1.2 (0.7-1.1cm)Aortic Cusp Exc.2.0 (1.5-2.0cm) LVDs3.9 (2.5-4.0cm) PWs1.8 cm Technically difficult study due to patient body habitus. Study quality precludes accurate assessment of regional wall motion. Normal left ventricular chamber size, systolic function and wall motion to extent visualized. Left ventricular ejection fraction estimated to be grossly normal. Mild left ventricular hypertrophy. Anterior Echo-free space, may be due to pericardial fat or effusion. Mild right atrial enlargement. Left atrial size at upper limits of normal. Right ventricular chamber sizes is within normal limits. Focal aortic valve sclerosis with adequate cusp excursion. Thickened mitral valve leaflets with normal excursion. Mild mitral annulus and aortic root calcification. Pulmonic valve not well visualized. Normal tricuspid valve structure. Subcostal views not obtainable. A color flow and spectral Doppler study was performed and revealed: No aortic regurgitation. No mitral regurgitation. Mitral diastolic velocities suggest mild left ventricular diastolic dysfunction (Grade I). No tricuspid regurgitation. Tricuspid systolic velocities suggests peak right ventricular systolic pressure of 15 mmHg. No pulmonic regurgitation present.
[2019-03-31 08:52] LABS: ANION GAP 10 mmol/L (5-15); BLOOD UREA NITROGEN 13 mg/dL (7-18); CARBON DIOXIDE 24 MMOL/L (21-32); CHLORIDE 105 MMOL/L (98-107); POTASSIUM 3.7 MMOL/L (3.5-5.1); SODIUM 139 MMOL/L (136-145)
--- NOTE | 2019-03-31 09:53 | General Progress Note ---
Assessment/Plan Problem List: (1) SOB (shortness of breath) ICD Codes: R06.02 - Shortness of breath SNOMED: 348186247 (2) Weak ICD Codes: R53.1 - Weakness SNOMED: 62150887 (3) Obese ICD Codes: E66.9 - Obesity, unspecified SNOMED: 254059960, 939096895 (4) HTN (hypertension) ICD Codes: I10 - Essential (primary) hypertension SNOMED: 20907958 (5) Diabetes ICD Codes: E11.9 - Type 2 diabetes mellitus without complications SNOMED: 46127375 (6) Chest pain ICD Codes: R07.9 - Chest pain, unspecified SNOMED: 04837326 Status: stable, progressing Assessment/Plan: pt diet cardio eval dc w hh if clear Subjective Constitutional: Reports: weakness Allergies: Coded Allergies: No Known Allergies (Unverified , 03/28/19) All Systems: reviewed and negative except above Subjective calm in bed Objective Last 24 Hour Vital Signs Date Time Temp Pulse Resp B/P (MAP) Pulse Ox O2 Delivery O2 Flow Rate FiO2 03/31/19 08:42 146/79 03/31/19 08:41 75 146/79 03/31/19 08:00 97.3 75 23 146/79 (101) 95 03/31/19 04:00 97.8 67 20 105/59 (74) 96 03/31/19 04:00 67 03/31/19 00:00 74 03/31/19 00:00 97.6 74 20 125/66 (85) 98 03/30/19 21:00 Room Air 03/30/19 20:26 67 18 97 Room Air 21 03/30/19 20:00 97.9 76 20 126/75 (92) 98 03/30/19 20:00 76 03/30/19 17:12 149/88 03/30/19 16:46 83 03/30/19 16:00 98.0 84 22 149/88 (108) 96 03/30/19 12:00 97.0 83 21 129/73 (91) 95 03/30/19 11:50 80 Intake and Output 03/30/19 03/31/19 19:00 07:00 # Voids 4 2 # Bowel Movements 1 1 Laboratory Tests 03/30/19 23:12: Troponin I 0.000 03/31/19 05:38: White Blood Count 12.6H, Red Blood Count 5.05, Hemoglobin 14.7, Hematocrit 44.9 , Mean Corpuscular Volume 89, Mean Corpuscular Hemoglobin 29.1, Mean Corpuscular Hemoglobin Concent 32.7, Red Cell Distribution Width 12.8, Platelet Count 457H, Mean Platelet Volume 7.1, Neutrophils (%) (Auto) 47.5, Lymphocytes ( %) (Auto) 40.6, Monocytes (%) (Auto) 7.9, Eosinophils (%) (Auto) 2.2, Basophils (%) (Auto) 1.7, Sodium Level 139, Potassium Level 3.7, Chloride Level 105, Carbon Dioxide Level 24, Anion Gap 10, Blood Urea Nitrogen 13, Creatinine 1.0, Estimat Glomerular Filtration Rate > 60, Glucose Level 119H, Calcium Level [ Pending] Height (Feet): 6 Height (Inches): 1.00 Weight (Pounds): 415 General Appearance: lethargic EENT: normal ENT inspection Neck: normal alignment Cardiovascular: normal peripheral pulses, normal rate, regular rhythm Respiratory/Chest: chest wall non-tender, lungs clear, normal breath sounds Abdomen: normal bowel sounds, non tender, soft Extremities: normal inspection Edema: no edema noted Arm (L), no edema noted Arm (R), no edema noted Leg (L), no edema noted Leg (R), no edema noted Pedal (L), no edema noted Pedal (R), no edema noted Generalized Neurologic: responsive, motor weakness Skin: normal pigmentation, warm/dry Dennis Tejada DO Mar 31, 2019 09:53
--- NOTE | 2019-03-31 10:03 | NUR ---
*-* INSURANCE *-* ALL CLINICALS HAVE BEEN FAXED TO: [facility] TREASUREM: RICHARD P: [phone] F: [phone] REF# [id number]
[2019-03-31 10:06] LABS: CALCIUM 9.4 MG/DL (8.5-10.1)
--- NOTE | 2019-03-31 11:11 | NUR ---
Discharge: Patient is being discharged to home with home health from medical care. Awake, alert and oriented x 4. After care instructions were given. Patient verbalized understanding of after care instructions upon discharge. All medical devices such as IV, hospital monitor and ID band were removed. Patient ambulated out with all personal belongings with steady gait.
--- NOTE | 2019-03-31 11:27 | Pulmonology Progress Note ---
Assessment/Plan Problems: (1) Diabetes (2) Chest pain (3) HTN (hypertension) Assessment/Plan stress test negative bp controlled monitor BS Subjective ROS Limited/Unobtainable: No Interval Events: no more chest pain Allergies: Coded Allergies: No Known Allergies (Unverified , 03/28/19) Objective Last 24 Hour Vital Signs Date Time Temp Pulse Resp B/P (MAP) Pulse Ox O2 Delivery O2 Flow Rate FiO2 03/31/19 10:32 77 20 99 Room Air 21 03/31/19 09:00 Room Air 03/31/19 08:42 146/79 03/31/19 08:41 75 146/79 03/31/19 08:00 97.3 75 23 146/79 (101) 95 03/31/19 07:37 74 03/31/19 04:00 97.8 67 20 105/59 (74) 96 03/31/19 04:00 67 03/31/19 00:00 74 03/31/19 00:00 97.6 74 20 125/66 (85) 98 03/30/19 21:00 Room Air 03/30/19 20:26 67 18 97 Room Air 21 03/30/19 20:00 97.9 76 20 126/75 (92) 98 03/30/19 20:00 76 03/30/19 17:12 149/88 03/30/19 16:46 83 03/30/19 16:00 98.0 84 22 149/88 (108) 96 03/30/19 12:00 97.0 83 21 129/73 (91) 95 03/30/19 11:50 80 Intake and Output 03/30/19 03/31/19 19:00 07:00 # Voids 4 2 # Bowel Movements 1 1 General Appearance: WD/WN HEENT: normocephalic, anicteric Respiratory/Chest: lungs clear, no respiratory distress Abdomen: normal bowel sounds, soft, non tender Laboratory Tests 03/30/19 23:12: Troponin I 0.000 03/31/19 05:38: White Blood Count 12.6H, Red Blood Count 5.05, Hemoglobin 14.7, Hematocrit 44.9 , Mean Corpuscular Volume 89, Mean Corpuscular Hemoglobin 29.1, Mean Corpuscular Hemoglobin Concent 32.7, Red Cell Distribution Width 12.8, Platelet Count 457H, Mean Platelet Volume 7.1, Neutrophils (%) (Auto) 47.5, Lymphocytes ( %) (Auto) 40.6, Monocytes (%) (Auto) 7.9, Eosinophils (%) (Auto) 2.2, Basophils (%) (Auto) 1.7, Sodium Level 139, Potassium Level 3.7, Chloride Level 105, Carbon Dioxide Level 24, Anion Gap 10, Blood Urea Nitrogen 13, Creatinine 1.0, Estimat Glomerular Filtration Rate > 60, Glucose Level 119H, Calcium Level 9.4 Ashtyn Jung MD Mar 31, 2019 11:27
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
--- NOTE | 2019-04-01 13:14 | NUR ---
*-* INSURANCE *-* DISCHARGE SUMMARY HAVE BEEN FAXED TO: [facility] TREASUREM: RICHARD P: [phone] F: [phone] REF# [id number]
--- NOTE | 2019-04-03 10:37 | NUR ---
*-* DISCHARGE PLANNING *-* PATIENT HAS BEEN REFERRED TO: [facility] [email or web address] [email or web address] [phone] Work [phone] Work Work Fax
--- NOTE | 2019-04-06 14:20 | NUR ---
CASE MANAGEMENT: CM review and clinical information (face sheet/ ER MD notes/ H&P/ ER MD notes) faxed to [facility] Dept @ [phone]. T# [id number].
--- NOTE | 2019-04-09 23:22 | Coder Physician Query ---
PLEASE COMPLETE THE DOCUMENT BEFORE SIGNING Dear Dr. GTZ Date: 04/09/19 Yard Specialist/CDS' Name: RUPESH VAZQUEZ Exercise your independent professional judgment when responding to query. Questions asked do not imply particular answer is desired or expected. We greatly appreciate your clarification on this issue. Clinical Documentation States: REASON FOR ADMISSION: [] 58 years old male with past medical history of hypertension, hyperlipidemia, diabetes mellitus, prior CVA with residual weakness, presented to emergency department for evaluation of chest pain and lightheadedness for 1 day. Patient reported intermittent lightheadedness with diaphoresis and chest discomfort over the left side of his chest. Clinical Findings Show: EKG negative, troponin normal. CP got better with nitro EKG normal sinus inferior infarct Please document the suspected etiology of Chest Pain: a.Type: []Cardiac []Non-cardiac []Unspecified b.Etiology - cardiac [] Aortic dissection []Mitral valve prolapsed [] Acute myocardial infarction []Spasm of coronary arteries [] Coronary Artery Disease []Pericarditis c.Etiology - non-cardiac [] Anxiety []Pleurisy [] Cancer []Pneumonia, type [] Costochondritis []Pneumothorax [] GERD/Esophagitis []Pulmonary embolism [] Unable to determine []Other: BEKAH GTZ D.O. DATE & [facility]
== END 2019-03-31 11:10 | disposition home health service (06) | DRG 203 ==
LOC: EMR 15:37 → 2E 19:16 → EDBEDREQ 19:53
DX: R07.9 Chest pain, unspecified (principal); R06.02 Shortness of breath; I10 Essential (primary) hypertension; E66.9 Obesity, unspecified; Z68.43 Body mass index [BMI] 50.0-59.9, adult; E78.5 Hyperlipidemia, unspecified; E11.9 Type 2 diabetes mellitus without complications; Z79.82 Long term (current) use of aspirin; Z79.4 Long term (current) use of insulin; I69.359 Hemiplegia and hemiparesis following cerebral infarction affecting unspecified side; Z87.891 Personal history of nicotine dependence; I82.511 Chronic embolism and thrombosis of right femoral vein; D47.3 Essential (hemorrhagic) thrombocythemia
CPT/HCPCS: 36415; 71045; 80048; 80053; 80061; 82550; 82553; 82962; 83880; 84443; 84484; 85025; 85610; 85730; 86140; 93005; 93017; 93306; 93970; 94664; 96360; 99285; J1815